=== PATIENT | male | born 2000 | race African-American/Black ===

== ENCOUNTER 2021-07-06 12:02 | Emergency (ER) | payer OTHER, SELFPAY ==
[2021-07-06] MEDS ORDERED: Ketorolac Tromethamine 30 MG/ML VIAL ONE ×2 (14:45→15:00)
== END 2021-07-06 16:00 | disposition home or self-care (01) ==
LOC: ERS 12:02
DX: M54.50 Low back pain, unspecified (principal); V43.52XA Car driver injured in collision with other type car in traffic accident, initial encounter; W22.10XA Striking against or struck by unspecified automobile airbag, initial encounter
CPT/HCPCS: 96372; 99283; J1885